=== PATIENT | male | born 1975 | race Caucasian/White ===

== ENCOUNTER 2020-10-23 14:54 | Emergency (ER) | payer BC, OTHER ==
[2020-10-23] MEDS ORDERED: Bacitracin Oint 1 GM U/D Packet TOP ONE (15:14)
--- NOTE | 2020-10-23 15:35 | EDM.PDOC ---
ED HPI GENERAL MEDICAL PROBLEM - General Chief Complaint: Skin Complaint Stated Complaint: FISH HOOK Time Seen by Provider: 10/23/20 15:15 Source of Information: Reports: Patient History Limitations: Reports: No Limitations - History of Present Illness INITIAL COMMENTS - FREE TEXT/NARRATIVE: 44-year-old male with 1 therese of a treble hook embedded into the pulp of the index finger on the right hand. It is been present for about an hour. No other complaint. Onset: Sudden Duration: Hour(s): (2 hours ago) Location: Reports: Upper Extremity, Right Associated Symptoms: Reports: No Other Symptoms - Related Data Allergies Allergy/AdvReac Type Severity Reaction Status Date / Time No Known Allergies Allergy Verified 10/23/20 15:14 Home Meds: Home Meds NK [No Known Home Meds] 10/23/20 [History] Social & Family History - Tobacco Use Tobacco Use Status *Q: Never Tobacco User ED ROS GENERAL - Review of Systems Review Of Systems: See Below Constitutional: Denies: Fever, Chills Respiratory: Denies: Shortness of Breath Cardiovascular: Denies: Chest Pain GI/Abdominal: Denies: Nausea, Vomiting Neurological: Denies: Paresthesia Psychiatric: Reports: No Symptoms ED EXAM, SKIN/RASH Exam: See Below Exam Limited By: No Limitations General Appearance: Alert, No Apparent Distress Head: Atraumatic Respiratory/Chest: No Respiratory Distress Extremities: Other (Exam is otherwise limited to the right hand. There is 1 therese of a hook embedded into the pulp, palmar surface, of the middle finger.) Neurological: Alert, Oriented Psychiatric: Normal Affect, Normal Mood Course - Vital Signs Last Recorded V/S: Last Vital Signs Temp 97.2 F 10/23/20 15:12 Pulse 61 10/23/20 15:12 Resp 16 10/23/20 15:12 BP 137/75 10/23/20 15:12 Pulse Ox 97 10/23/20 15:12 - Orders/Labs/Meds Meds: Medications Discontinued Medications Generic Name Dose Route Start Last Admin Trade Name Freq PRN Reason Stop Dose Admin Bacitracin 1 dose 10/23/20 15:14 10/23/20 16:04 Bacitracin Oint 1 Gm U/D Packet TOP 10/23/20 15:15 1 dose ONETIME ONE Administration Lidocaine HCl 5 ml 10/23/20 15:14 10/23/20 16:04 Lidocaine 1% 5 Ml Sdv INJECT 10/23/20 15:15 5 ml ONETIME ONE Administration - Re-Assessments/Exams Free Text/Narrative Re-Assessment/Exam: 10/23/20 17:32 The area was sterilized with alcohol, infiltrated with a small amount of 1% lidocaine, and the hook was removed with countertraction. It was again scrubbed with alcohol, some topical bacitracin applied and a Band-Aid. He should keep this clean and covered while healing. He can recheck if concerns of infection. Departure - Departure Time of Disposition: 16:03 Disposition: Home, Self-Care 01 Clinical Impression: [place] injury to finger Qualifiers: Encounter type: initial encounter Laterality: right Qualified Code(s): S69.91XA - Unspecified injury of right wrist, hand and finger(s), initial encounter - Discharge Information Instructions: Puncture Wound, [id number] Referrals: PCP,None [Primary Care Provider] - Forms: ED Department Discharge Care Plan Goals: Keep wound covered and clean while healing, recheck if concerns of infection or not healing satisfactorily. Keep fishing. Sepsis Event Note (ED) - Evaluation Sepsis Screening Result: No Definite Risk - Focused Exam Vital Signs: Vital Signs Temp Pulse Resp BP Pulse Ox 10/23/20 15:12 97.2 F 61 16 137/75 97 10/23/20 15:07 97.2 F 61 16 137/75 97
== END 2020-10-23 16:03 | disposition home or self-care (01) ==
LOC: JP.ED 14:54
DX: S60.452A Superficial foreign body of right middle finger, initial encounter (principal); W45.8XXA Other foreign body or object entering through skin, initial encounter
CPT/HCPCS: 99282